=== PATIENT | male | born 1955 | race African-American/Black ===

== ENCOUNTER 2023-10-19 09:28 | Observation (INO) | payer OTHER ==
[2023-10-19] MEDS ORDERED: NA CHLORIDE 0.9% 1,000 ML ONE (09:58)
[2023-10-19 10:24] LABS: PT Prothrombin Time 18.6 SECONDS (9.5-12.5); Protime INR 1.72
[2023-10-19 10:30] LABS: Absolute Eosinophils 0.1 K/uL (0-0.5); Absolute Lymphocytes (CBC) 0.7 K/uL (0.7-4.9); Absolute Monocytes 0.5 K/uL (0.1-1.3); Absolute Neutrophil 7.6 K/uL (1.8-8.0); Basophils % 0.5 % (0-1.3); Eosinophils % 0.8 % (0-4.4); Hematocrit 22.5 % (39.6-49.0); Hemoglobin 7.1 g/dL (13.6-17.9); Lymphocytes % 7.7 % (15.3-44.8); MCH 28.1 pg (27.0-35.0); MCHC 31.7 g/dL (32.0-36.0); MCV 88.7 fL (80-100); MPV 9.9 fL (7.6-11.3); Monocytes % 5.7 % (3.3-12.3); Neutrophils % 85.3 % (41.7-73.7); Nucleated Red Blood Cells % 0.3 % (0-0); Platelets 93 thou/uL (152-406); RBC Red Blood Cell Count 2.54 M/uL (4.33-5.43)
--- NOTE | 2023-10-19 10:31 | RAD REPORT ---
EXAM DESCRIPTION: CT - Head C Spine Cap Lauren Con - 10/19/2023 10:00 am CLINICAL HISTORY: Head and neck injury with chest and abdominal pain status post fall TECHNIQUE: Computed axial tomography of head, neck, chest, abdomen and pelvis obtained. IV and oral contrast not requested. Coronal and sagittal reconstruction performed. All CT scans are performed using dose optimization technique as appropriate and may include automated exposure control or mA/KV adjustment according to patient size. COMPARISON: None FINDINGS: An intracranial bleed is not seen. The ventricles are normal in caliber. An extra-axial fluid collection is not noted. Small old right occipital lobe infarction Fluid within the sinuses/mastoids is not seen. A cervical fracture is not seen. A 1.3 centimeter sclerotic lesion T3 vertebral body Slight anterior subluxation C3 on C4 and C4 on C5. Mild splaying of the spinous processes C5 and C6 . spondylosis distal cervical spine Small lipoma right posterior neck musculature The evaluation of mediastinum, christine, vessels, solid organs and bowel are limited secondary to the lac k of contrast administration. A mediastinal hematoma is not noted. Moderate to large left and small to moderate right pleural effus ions A lung contusion is not present. Multiple calcified and noncalcified lung granulomas. Opacity le ft lung probably atelectasis. Calcified mediastinal lymph nodes The liver,spleen, pancreas, adrenals,kidneys and bladder do not demonstrate an acute traumatic injury 2.3 centimeter hepatic cyst. Small kidneys. Small renal cysts. Vascular calcifications. Small to moderate amount of ascites. Spondylosis lumbar spine IMPRESSION: No acute intracranial abnormality is seen. A cervical fracture is not visualized. Slight anterior subluxation C3 on C4 and C4 on C5. Mild splayi ng of the spinous processes C5 and C6. I suspect all of this is chronic. If the patient continues to have symptoms to suggest intracranial/spinal cord/ligamentous pathology then MRI would be recommended No acute traumatic abnormality involving the chest, abdomen or pelvis Multiple calcified and and non calcified lung nodules probably benign. Follow-up unenhanced CT chest in 1 year recommended for re-evaluation Moderate to large left pleural effusion T3 sclerosis nonspecific. This could be benign or blastic metastasis
[2023-10-19 10:44] LABS: ALT/SGPT 13 U/L (16-61); AST/SGOT 19 U/L (15-37); Albumin 2.3 g/dL (3.4-5.0); Albumin/Globulin Ratio 0.7 (1.1-1.8); Alkaline Phosphatase 95 U/L (45-117); Anion Gap 11.1 mEq/L (5.0-15.0); BUN Blood Urea Nitrogen 10 mg/dL (7-18); Bicarbonate 26 mEq/L (21-32); Bilirubin Total 0.3 mg/dL (0.2-1.0); Globulin 3.4 g/dL (2.3-3.5); Glomerular Filtration Rate 16 ml/min (=/>90); Glucose Level 117 mg/dL (74-106); Lipase 36 U/L (13-75); Magnesium 1.9 mg/dL (1.6-2.4); NT PRO-BNP 5275 pg/mL (<125); Potassium 3.1 mEq/L (3.5-5.1); Protein, Total 5.7 g/dL (6.4-8.2); Sodium Level 141 mEq/L (136-145); Troponin High Sensitivity 23.6 pg/mL (<58.9)
[2023-10-19 10:45] LABS: Bilirubin Direct < 0.1 mg/dL (0-0.2); Bilirubin Indirect, Calculated ND mg/dL (0.2-0.8)
--- NOTE | 2023-10-19 11:00 | ER ---
Nurse's Notes [facility] Name: David German Age: 68 yrs Sex: Male : 1955 Arrival Date: 10/19/2023 Time: 09:28 Bed 6 Private MD: Diagnosis: Dizziness and giddiness;Anemia in chronic kidney disease;Syncope Near;Fall on same level, unspecified;Dependence on renal dialysis;Hypertensive heart and chronic kidney disease without heart failure, with stage 5 chronic kidney disease, or end stage renal disease Presentation: 10/18 09:39 Chief complaint: EMS states: toned out to [facility] for fall out of wheelchair due to ld1 dizziness. [facility] reports removing minimal fluid due to patient being dry. Post treatment pt became dizzy and fell out of wheelchair in parking lot, denies hitting head, negative LOC. Not on blood thinners. Coronavirus screen: At this time, the client does not indicate any symptoms associated with coronavirus-19. Ebola Screen: No symptoms or risks identified at this time. Initial Sepsis Screen: Does the patient meet any 2 criteria? No. Patient's initial sepsis screen is negative. Does the patient have a suspected source of infection? No. Patient's initial sepsis screen is negative. Risk Assessment: Do you want to hurt yourself or someone else? Patient reports no desire to harm self or others. Onset of symptoms was October 19, 2023. 09:39 Method Of Arrival: EMS: [facility] ld1 09:39 Acuity: RODDY 3 ld1 Triage Assessment: 09:50 General: Appears in no apparent distress. comfortable, Behavior is calm, cooperative, ld1 appropriate for age. Pain: Denies pain. EENT: No signs and/or symptoms were reported regarding the EENT system. Neuro: Level of Consciousness is awake, alert, obeys commands, Oriented to person, place, time, situation, Reports dizziness. Cardiovascular: Capillary refill < 3 seconds Patient's skin is warm and dry. Rhythm is sinus rhythm. Respiratory: Airway is patent Respiratory effort is even, unlabored. GI: Abdomen is flat, non-distended. : No signs and/or symptoms were reported regarding the genitourinary system. Derm: No signs and/or symptoms reported regarding the dermatologic system. Musculoskeletal: No signs and/or symptoms reported regarding the musculoskeletal system. Historical: - Allergies: 09:50 No Known Allergies; ld1 - Home Meds: 09:45 midodrine 10 mg oral tablet 1 tab 3 times per day [Active]; furosemide 40 mg Oral ld1 tablet 1 tab 2 times per day [Active]; Lantus U-100 Insulin Sub-Q [Active]; - PMHx: 09:45 Diabetes mellitus; Chronic kidney disease; Dialysis; ld1 - Immunization history:: Adult Immunizations up to date. - Infectious Disease History:: Denies. - Social history:: Smoking status: Patient denies any tobacco usage or history of. - Family history:: not pertinent. Screenin:52 [facility] ED Fall Risk Assessment (Adult) History of falling in the last 3 months, ld1 including since admission Yes- single mechanical fall (1 pt). Abuse screen: Denies threats or abuse. Denies injuries from another. Nutritional screening: No deficits noted. Nutritional screening: No deficits noted. Tuberculosis screening: No symptoms or risk factors identified. Assessment: :52 Reassessment: See triage assessmnet. ld1 Vital Signs: 09:39 BP 98 / 64; Pulse 76; Resp 18; Temp 97.6(TE); Pulse Ox 100% on R/A; Weight 66 kg; ld1 Height 5 ft. 8 in. ; Pain 0/10; 09:39 Body Mass Index 22.12 (66.00 kg, 172.72 cm) ld1 09:39 Pain Scale: Adult ld1 ED Course: 09:38 Patient arrived in ED. ld1 09:44 Henrik Ramirez MD is Attending Physician. [facility] 09:45 Triage completed. ld1 09:50 Arm band placed on right wrist. ld1 09:52 Patient has correct armband on for positive identification. Placed in gown. Bed in low ld1 position. Call light in reach. Side rails up X2. trim and burr operator on. Pulse ox on. NIBP on. Door closed. Noise minimized. Warm blanket given. 09:52 No provider procedures requiring assistance completed. ld1 09:53 Di Hernandez, ÓSCAR is Primary Nurse. ld1 10:02 CT Traumagram (Head C Spine CAP wo con) In Process Unspecified. EDMS 10:21 XRAY Chest (1 view) In Process Unspecified. EDMS 10:22 Accessed Port-a-Cath. using accessed w/ # 20 Porter needle, ,sterile technique, per 1 hospital protocol. Good blood return. Flushes easily. 10:54 Marion Isidro MD is Hospitalizing Provider. [facility] 11:02 Type And Screen Sent. ld1 11:05 Bb Add On Sent. ko1 12:42 Patient admitted, IV remains in place. ld1 Administered Medications: 10:20 Drug: NS 0.9% IV 1000 ml IV at 125 ml/hr continuous Route: IV; Rate: 125 ml/hr; Site: ld1 Port-a-cath; 10:20 Drug: NS 0.9% IV 250 ml IV at bolus once Route: IV; Rate: bolus; Site: Port-a-cath; ld1 Medication: 09:52 VIS not applicable for this client. ld1 Outcome: 11:00 Decision to Hospitalize by Provider. [facility] 12:41 Admitted to Med/surg accompanied by tech, via wheelchair, ld1 12:41 Condition: stable 12:41 Instructed on the need for admit, 12:43 Patient left the ED. ld1 Signatures: Dispatcher [employer] EDHenrik Lovell MD MD cha Sims, Lauren, RN RN ld1 Lashonda Canas, RN RN ko1 Corrections: (The following items were deleted from the chart) 11:35 11:02 ABO/RH typing drawn and sent. 1 EDMS
--- NOTE | 2023-10-19 11:00 | EDPHYS ---
Physician Documentation [facility] Name: David German Age: 68 yrs Sex: Male : 1955 Arrival Date: 10/19/2023 Time: 09:28 Bed 6 Private MD: ED Physician Henrik Ramirez HPI: 10/18 10:40 This 68 yrs old Male presents to ER via EMS with complaints of Fall Injury, suleiman Dizziness, General Weakness. 10:40 Details of fall: The patient fell from an upright position, while walking. Onset: The suleiman symptoms/episode began/occurred just prior to arrival. Associated injuries: The patient sustained no obvious injury. Severity of symptoms: At their worst the symptoms were mild, in the emergency department the symptoms are unchanged. The patient has experienced similar episodes in the past, several times. Historical: - Allergies: 09:50 No Known Allergies; ld1 - Home Meds: 09:45 midodrine 10 mg oral tablet 1 tab 3 times per day [Active]; furosemide 40 mg Oral ld1 tablet 1 tab 2 times per day [Active]; Lantus U-100 Insulin Sub-Q [Active]; - PMHx: 09:45 Diabetes mellitus; Chronic kidney disease; Dialysis; ld1 - Immunization history:: Adult Immunizations up to date. - Infectious Disease History:: Denies. - Social history:: Smoking status: Patient denies any tobacco usage or history of. - Family history:: not pertinent. ROS: 10:35 Constitutional: Negative for fever, chills, and weight loss, Eyes: Negative for injury, suleiman pain, redness, and discharge, ENT: Negative for injury, pain, and discharge, Neck: Negative for injury, pain, and swelling, Cardiovascular: Negative for chest pain, palpitations, and edema, Respiratory: Negative for shortness of breath, cough, wheezing, and pleuritic chest pain, Abdomen/GI: Negative for abdominal pain, nausea, vomiting, diarrhea, and constipation, Back: Negative for injury and pain, : Negative for injury, bleeding, discharge, and swelling, MS/Extremity: Negative for injury and deformity, Skin: Negative for injury, rash, and discoloration, Psych: Negative for depression, anxiety, suicide ideation, homicidal ideation, and hallucinations, Allergy/Immunology: Negative for hives, rash, and allergies, Endocrine: Negative for neck swelling, polydipsia, polyuria, polyphagia, and marked weight changes, Hematologic/Lymphatic: Negative for swollen nodes, abnormal bleeding, and unusual bruising, 10:35 Neuro: Positive for weakness, Exam: 10:35 Constitutional: This is a well developed, well nourished patient who is awake, alert, suleiman and in no acute distress. Head/Face: Normocephalic, atraumatic. Eyes: Pupils equal round and reactive to light, extra-ocular motions intact. Lids and lashes normal. Conjunctiva and sclera are non-icteric and not injected. Cornea within normal limits. Periorbital areas with no swelling, redness, or edema. ENT: Nares patent. No nasal discharge, no septal abnormalities noted. Tympanic membranes are normal and external auditory canals are clear. Oropharynx with no redness, swelling, or masses, exudates, or evidence of obstruction, uvula midline. Mucous membranes moist. Neck: Trachea midline, no thyromegaly or masses palpated, and no cervical lymphadenopathy. Supple, full range of motion without nuchal rigidity, or vertebral point tenderness. No Meningismus. Chest/axilla: Normal chest wall appearance and motion. Nontender with no deformity. No lesions are appreciated. Cardiovascular: Regular rate and rhythm with a normal S1 and S2. No gallops, murmurs, or rubs. Normal PMI, no JVD. No pulse deficits. Respiratory: Lungs have equal breath sounds bilaterally, clear to auscultation and percussion. No rales, rhonchi or wheezes noted. No increased work of breathing, no retractions or nasal flaring. Abdomen/GI: Soft, non-tender, with normal bowel sounds. No distension or tympany. No guarding or rebound. No evidence of tenderness throughout. Back: No spinal tenderness. No costovertebral tenderness. Full range of motion. Skin: Warm, dry with normal turgor. Normal color with no rashes, no lesions, and no evidence of cellulitis. MS/ Extremity: Pulses equal, no cyanosis. Neurovascular intact. Full, normal range of motion. Neuro: Awake and alert, GCS 15, oriented to person, place, time, and situation. Cranial nerves II-XII grossly intact. Motor strength 5/5 in all extremities. Sensory grossly intact. Cerebellar exam normal. Normal gait. Psych: Awake, alert, with orientation to person, place and time. Behavior, mood, and affect are within normal limits. 10:35 ECG was reviewed by the Attending Physician. Vital Signs: 09:39 BP 98 / 64; Pulse 76; Resp 18; Temp 97.6(TE); Pulse Ox 100% on R/A; Weight 66 kg; ld1 Height 5 ft. 8 in. ; Pain 0/10; 09:39 Body Mass Index 22.12 (66.00 kg, 172.72 cm) ld1 09:39 Pain Scale: Adult ld1 MDM: 09:44 Patient medically screened. suleiman 10:42 Differential Diagnosis altered mental status, sepsis, flu. Differential diagnosis: suleiman abrasion, closed head injury, contusion, fracture, laceration, multiple trauma, sprain, strain. Data reviewed: vital signs, nurses notes, EMS record, lab test result(s), EKG, radiologic studies, CT scan, plain films. Consideration of Admission/Observation Escalation of care including admission/observation considered. I considered the following discharge prescriptions or medication management in the emergency department Medications were administered in the Emergency Department. See MAR. Independent interpretation of the following test(s) in the Emergency Department EKG: See my EKG interpretation above. Test considered but Not performed: MRI: NO MRI BRAIN. Care significantly affected by the following chronic conditions: Diabetes, Chronic Kidney Disease, DIALYSIS T,TH, SAT. 10/18 09:48 Order name: Basic Metabolic Panel; Complete Time: 10:47 10/18 09:48 Order name: CBC with Diff 10/18 09:48 Order name: LFT's; Complete Time: 10:47 10/18 09:48 Order name: Magnesium; Complete Time: 10:47 10/18 09:48 Order name: NT PRO-BNP; Complete Time: 10:47 10/18 09:48 Order name: PT-INR; Complete Time: 10:27 10/18 09:48 Order name: Troponin HS; Complete Time: 10:47 10/18 09:48 Order name: Lipase; Complete Time: 10:47 10/18 09:48 Order name: Urinalysis w/ reflexes 10/18 10:53 Order name: Bb Add On bd 10/18 10:54 Order name: Type And Screen bd 10/18 11:37 Order name: Packed RBC Leukored EDMS 10/18 12:02 Order name: ABO/RH no charge [facility] 10/18 12:08 Order name: CBC Smear Scan [facility] 10/18 09:48 Order name: XRAY Chest (1 view) [facility] 10/18 09:48 Order name: CT Traumagram (Head C Spine CAP wo con); Complete Time: 10:47 [facility] 10/18 09:48 Order name: EKG; Complete Time: 09:49 [facility] 10/18 11:37 Order name: CONS Physician Consult [facility] 10/18 09:48 Order name: Cardiac monitoring; Complete Time: 09:53 [facility] 10/18 09:48 Order name: EKG - Nurse/Tech; Complete Time: 09:53 [facility] 10/18 09:48 Order name: IV Saline Lock; Complete Time: 10:22 [facility] 10/18 09:48 Order name: Labs collected and sent; Complete Time: 10:22 [facility] 10/18 09:48 Order name: O2 Per Protocol; Complete Time: 09:53 [facility] 10/18 09:48 Order name: O2 Sat Monitoring; Complete Time: 09:53 [facility] EC:35 Rate is 77 beats/min. Rhythm is regular. QRS [place] is Normal. [place] interval is normal. QRS suleiman interval is normal. QT interval is normal. No Q waves. T waves are Normal. No ST changes noted. Clinical impression: NSR w/ Non-specific ST/T Changes and No evidence of ischemia. Interpreted by me. Reviewed by me. Administered Medications: 10:20 Drug: NS 0.9% IV 1000 ml IV at 125 ml/hr continuous Route: IV; Rate: 125 ml/hr; Site: ld1 Port-a-cath; 10:20 Drug: NS 0.9% IV 250 ml IV at bolus once Route: IV; Rate: bolus; Site: Port-a-cath; ld1 Disposition Summary: 10/19/23 11:00 Hospitalization Ordered Notes: Hospitalization Status: Observation suleiman Provider: Marion Isidro cha Location: Telemetry/MedSurg (observation) suleiman Condition: Fair suleiman Problem: new suleiman Symptoms: have improved suleiman Bed/Room Type: Standard suleiman Room Assignment: 420(10/19/23 11:57) bd Diagnosis - Dizziness and giddiness suleiman - Anemia in chronic kidney disease suleiman - Syncope Near suleiman - Fall on same level, unspecified suleiman - Dependence on renal dialysis suleiman - Hypertensive heart and chronic kidney disease without heart failure, with stage 5 suleiman chronic kidney disease, or end stage renal disease Discharge Instructions: - Discharge Summary Sheet suleiman - Fall Prevention in the Home, Adult suleiman - Hypotension suleiman - Near-Syncope suleiman - Orthostatic Hypotension suleiman - Dialysis suleiman - Fall Prevention in the Home, Adult, Ccaf-ew-Dvau suleiman - Hypotension, Neib-pu-Gkgm suleiman - Hemodialysis, Txan-uz-Nieu suleiman Forms: - Medication Reconciliation Form suleiman - SBAR form suleiman - Leadership Thank You Letter suleiman Signatures: Dispatcher [employer] EDManuela Thorpe Corey, MD MD cha Sims, Lauren, RN RN ld1 Corrections: (The following items were deleted from the chart) 09:49 09:49 BASIC METABOLIC PANEL+C.LAB.BRZ ordered. EDMS EDMS 09:49 09:49 CBC+H.LAB.BRZ ordered. EDMS EDMS 09:49 09:49 HEPATIC FUNCTION+C.LAB.BRZ ordered. EDMS EDMS 09:49 09:49 MAGNESIUM+C.LAB.BRZ ordered. EDMS EDMS 09:49 09:49 PROBNP+C.LAB.BRZ ordered. EDMS EDMS 09:49 09:49 PROTIME (+INR)+COAG.LAB.BRZ ordered. EDMS EDMS 09:49 09:49 Troponin High Sensitivity+C.LAB.BRZ ordered. EDMS EDMS 09:49 09:49 LIPASE+C.LAB.BRZ ordered. EDMS EDMS 09:49 09:49 Urinalysis+U.LAB.BRZ ordered. EDMS EDMS 11:35 10:50 PACKED RBC LEUKORED+BB.LAB.BRZ ordered. EDMS EDMS 11:35 10:52 ABO/RH typing ordered. EDMS EDMS 11:35 10:52 Antibody Screen ordered. EDMS EDMS 11:57 11:00 suleiman bd
--- NOTE | 2023-10-19 11:24 | RAD REPORT ---
EXAM DESCRIPTION: Rachael Single View10/19/2023 10:19 am CLINICAL HISTORY: Cough COMPARISON: none FINDINGS: Moderate to large left and small to moderate right pleural effusions with bilateral atelec tasis. Calcified lung granulomas bilaterally. Several noncalcified lung nodules. Heart is mildly enlarged. Postsurgical changes involve the chest. Vascular stents and vascular catheter in place
[2023-10-19] MEDS ORDERED: NA CHLORIDE 0.9% 250 ML ONE (11:31)
--- NOTE | 2023-10-19 11:39 | P.HP ---
Certification for Inpatient Patient admitted to: Observation <Ame Shook - Last Filed: 10/19/23 13:36> Patient History Date of Service: 10/19/23 Reason for admission: Syncopal epsisode History of Present Illness: 68 year old AA male patient with past medical history pancreatic cancer, (recieved x 1 dose chemo), ESRD HD w Dr Chang, TTS, failed renal transplant, hypertension, IDDM, PAD, L)BKA, toe and finger amputations, he was in WC after HD and had a fall, he denies hitting his head, denies pain. Denies LOC. He reports generalized weakness, fall, is at bedside is primary historian reports recent hypotension, generalized weakness, inability to stand, reports recently treated stool infecton, Emoyro had diarrhea treated with IV antibiotics. He denies LOC, Baseline amb w WC, LBKA w prosthesis, partial finger and toe ampuations, reported moderate weakness, had a fall today after HD today. Plan to admit for syncopal episode, ESRD HD, Anemia, fall, generalized weakness. - Past Medical/Surgical History Diabetic: Yes -: ESRD HD -: Failled Renal transplant -: Metastatic pancreatic cancer (finished 1 dose chemo) -: hypertension -: IDDM -: PAD -: L)BKA -: prior toe, finger ampuations -: Failed Renal Transplant - Social History Smoking Status: Never smoker Alcohol use: No Caffeine use: No Place of Residence: Home <Ame Sohok - Last Filed: 10/19/23 13:36> Date of Service: 10/19/23 <Marion Isidro - Last Filed: 10/23/23 01:46> Allergies No Known Allergies Allergy (Unverified 10/19/23 11:30) Home Medications: Apixaban [Eliquis] 1 tab PO BID 10/19/23 Aspirin [Aspirin EC] 1 tab PO DAILY 10/19/23 Atorvastatin Calcium [Lipitor] 1 tab PO BEDTIME 10/19/23 Cyanocobalamin (Vitamin B-12) [Vitamin B-12] 1 tab PO DAILY 10/19/23 Insulin Glargine,Hum.rec.anlog [Lantus] 12 units SQ BEDTIME 10/19/23 Insulin Lispro 1 unit SQ TID 10/19/23 Metoclopramide HCl [Reglan] 1 tab PO BID 10/19/23 Midodrine HCl 10 mg PO SEECOM 10/19/23 Pantoprazole Sodium [Protonix] 1 tab PO DAILY 10/19/23 Tamsulosin [Flomax*] 1 cap PO DAILY 10/19/23 Review of Systems per HPI <BouchraAme - Last Filed: 10/19/23 13:36> Physical Examination - Physical Exam General: Alert, In no apparent distress, Oriented x3, Other HEENT: Atraumatic, Normocephalic Neck: Supple, 2+ carotid pulse no bruit Respiratory: Normal air movement, Diminished Cardiovascular: Normal pulses, Regular rate/rhythm Capillary refill: <2 Seconds Gastrointestinal: Normal bowel sounds, Soft and benign Musculoskeletal: No clubbing, No swelling, Other (L)BKA w prosthesis, finger, toe ampuatations) Integumentary: No rashes, No breakdown, Other (right femoral HD cath, L) arm fistula) Neurological: Normal speech, Normal strength at 5/5 x4 extr, Other (generalized weakness) - Studies Laboratory Data (last 24 hrs) 10/19/23 10/19/23 10/19/23 10:14 10:14 10:14 WBC 9.00 Hgb 7.1 L Hct 22.5 L Plt Count 93 L PT 18.6 H INR 1.72 Sodium 141 Potassium 3.1 L BUN 10 Creatinine 3.84 H Glucose 117 H Magnesium 1.9 Total Bilirubin 0.3 AST 19 ALT 13 L Alkaline Phosphatase 95 Lipase 36 <BouchraAme - Last Filed: 10/19/23 13:36> Assessment and Plan - Plan Assessment plan Mechanical fall Suspected syncopal episode likely from hypovolemia end-stage renal disease post hemodialysis Hypotension PAD On chronic anticoagulation Eliquis Left below the knee amputation Echo, as needed midodrine PT eval for transfer training Fall precaution EKG Rate is 77 beats/min. Rhythm is regular. QRS [place] is Normal. [place] interval is normal. QRS interval is normal. QT interval is normal. No Q waves. T waves are Normal. No ST changes noted. Clinical impression: NSR w/ Non-specific ST/T Changes and No evidence of ischemia. Troponin normal at 23.6 Elevated BNP 5275 Metastatic pancreatic cancer On chemotherapy-previously received 1 dose On chronic anticoag Follow-up with oncology outpatient, End-stage renal disease on hemodialysis Failed renal transplant Monday, Nephrology consult for hemodialysis daily weight Anemia of chronic disease Trend H&H transfuse 1 unit 7.1 22.5 Thrombocytopenia Platelets 93, heparin on hold, Eliquis on hold Insulin-dependent Accu-Chek, sliding scale Full code DVT Eliquis hold due to anemia Diet renal Disposition Home with spouse, ambulates with wheelchair prior to admission, possibly at home with home health for PT Discharge Plan: Home - Advance Directives Does patient have a Living Will: No Does patient have a Durable POA for Healthcare: No - Code Status/Comfort Care Code Status: Full Code Critical Care: No Time Spent Managing Pts Care (In Minutes): 55 <Ame Shook - Last Filed: 10/19/23 13:36> Date of Service: 10/19/23 Patient was seen and examined. Events of the last 24 hours have been noted. Spoke with with TOMA regarding patient's clinical picture after evaluating and examining the patient independently. I performed a substantial part of the MDM during this patient's care today. I personally made or approved the documented management plan and acknowledge its risk of complications. I agree with the findings and documentation provided in the TOMA's notes. <Marion Isidro - Last Filed: 10/23/23 01:46>
[2023-10-19 12:08] LABS: Anisocytosis 1+; Blood Morphology Comment NOTED (NOT SEEN); Platelet Estimate DECR; White Blood Cell Scan OK (OK)
[2023-10-19] MEDS ORDERED: ACETAMINOPHEN 500 MG TAB PO PRN (12:53)
[2023-10-19 13:08] VITALS: BMI 22.1
[2023-10-19] MEDS: INSULIN REGULAR (HUMAN) 100 UNIT/ML SQ SCH (16:27)
[2023-10-19] MEDS ORDERED: HEPARIN 5000 UNIT/ML 1 ML VIAL SQ SCH (17:00)
--- NOTE | 2023-10-19 18:45 | P.CNS ---
Date of Consult: 10/19/23 Reason for Consult: ESRD Requesting Physician: Marion Isidro Chief Complaint: Syncopal epsisode History of Present Illness: 68 year old AA male patient with past medical history pancreatic cancer, (recieved x 1 dose chemo), ESRD HD w Dr Chang, TTS, failed renal transplant, hypertension, IDDM, PAD, L)BKA, toe and finger amputations, he was in WC after HD and had a fall, he denies hitting his head, denies pain. Denies LOC. He reports generalized weakness, fall, is at bedside is primary historian reports recent hypotension, generalized weakness, inability to stand, reports recently treated stool infecton, [place] had diarrhea treated with IV antibiotics. He denies LOC, Baseline amb w WC, LBKA w prosthesis, partial finger and toe ampuations, reported moderate weakness, had a fall today after HD today. Plan to admit for syncopal episode, ESRD HD, Anemia, fall, generalized weakness. [id number] 10:40 This 68 yrs old Male presents to ER via EMS with complaints of Fall Injury, suleiman Dizziness, General Weakness. 10:40 Details of fall: The patient fell from an upright position, while walking. Onset: The suleiman symptoms/episode began/occurred just prior to arrival. Associated injuries: The patient sustained no obvious injury. Severity of symptoms: At their worst the symptoms were mild, in the emergency department the symptoms are unchanged. The patient has experienced similar episodes in the past, several times. Allergies No Known Allergies Allergy (Unverified 10/19/23 11:30) Home medications list reviewed: Yes Home Medications: Apixaban [Eliquis] 1 tab PO BID 10/19/23 Aspirin [Aspirin EC] 1 tab PO DAILY 10/19/23 Atorvastatin Calcium [Lipitor] 1 tab PO BEDTIME 10/19/23 Cyanocobalamin (Vitamin B-12) [Vitamin B-12] 1 tab PO DAILY 10/19/23 Insulin Glargine,Hum.rec.anlog [Lantus] 12 units SQ BEDTIME 10/19/23 Insulin Lispro 1 unit SQ TID 10/19/23 Metoclopramide HCl [Reglan] 1 tab PO BID 10/19/23 Midodrine HCl 10 mg PO SEECOM 10/19/23 Pantoprazole Sodium [Protonix] 1 tab PO DAILY 10/19/23 Tamsulosin [Flomax*] 1 cap PO DAILY 10/19/23 - Past Medical/Surgical History Diabetic: Yes -: ESRD HD -: Fa[facility] Renal transplant -: Metastatic pancreatic cancer (finished 1 dose chemo) -: HTN -: IDDM -: PAD -: Left BKA -: prior toe, finger ampuations -: Failed Renal Transplant - Family History Father Medical History: Lung disease, Cancer Mother Medical History: GI disease - Social History Alcohol use: No CD- Drugs: No Caffeine use: No Place of Residence: Home Review of Systems 10-point ROS is otherwise unremarkable General: Weakness Physical Examination Temp Pulse Resp BP Pulse Ox 97.4 F 80 16 182/70 H 10/19/23 16:00 10/19/23 16:00 10/19/23 16:00 10/19/23 16:00 General: In no apparent distress, Cooperative HEENT: Atraumatic Neck: Supple Respiratory: Normal air movement Cardiovascular: Regular rate/rhythm Gastrointestinal: Soft and benign, Non-distended Musculoskeletal: No clubbing, No contractures Integumentary: No rashes, No cyanosis Neurological: Normal speech Laboratory Data (last 24 hrs) 10/19/23 10/19/23 10/19/23 10:14 10:14 10:14 WBC 9.00 Hgb 7.1 L Hct 22.5 L Plt Count 93 L PT 18.6 H INR 1.72 Sodium 141 Potassium 3.1 L BUN 10 Creatinine 3.84 H Glucose 117 H Magnesium 1.9 Total Bilirubin 0.3 AST 19 ALT 13 L Alkaline Phosphatase 95 Lipase 36 Imagings Data: [id number] [facility] CLINICAL HISTORY: Cough COMPARISON: none FINDINGS: Moderate to large left and small to moderate right pleural effusions with bilateral atelectasis. Calcified lung granulomas bilaterally. Several noncalcified lung nodules. Heart is mildly enlarged. Postsurgical changes involve the chest. Vascular stents and vascular catheter in place [id number] EXAM DESCRIPTION: CT - Head C Spine Cap Wo Con - 10/19/2023 10:00 am CLINICAL HISTORY: Head and neck injury with chest and abdominal pain status post fall TECHNIQUE: Computed axial tomography of head, neck, chest, abdomen and pelvis obtained. IV and oral contrast not requested. Coronal and sagittal reconstruction performed. All CT scans are performed using dose optimization technique as appropriate and may include automated exposure control or mA/KV adjustment according to patient size. COMPARISON: None FINDINGS: An intracranial bleed is not seen. The ventricles are normal in caliber. An extra-axial fluid collection is not noted. Small old right occipital lobe infarction Fluid within the sinuses/mastoids is not seen. A cervical fracture is not seen. A 1.3 centimeter sclerotic lesion T3 vertebral body Slight anterior subluxation C3 on C4 and C4 on C5. Mild splaying of the spinous processes C5 and C6 .spondylosis distal cervical spine Small lipoma right posterior neck musculature The evaluation of mediastinum, christine, vessels, solid organs and bowel are limited secondary to the lack of contrast administration. A mediastinal hematoma is not noted. Moderate to large left and small to moderate right pleural effusions A lung contusion is not present. Multiple calcified and noncalcified lung granulomas. Opacity left lung probably atelectasis. Calcified mediastinal lymph nodes The liver,spleen, pancreas, adrenals,kidneys and bladder do not demonstrate an acute traumatic injury 2.3 centimeter hepatic cyst. Small kidneys. Small renal cysts. Vascular calcifications. Small to moderate amount of ascites. Spondylosis lumbar spine IMPRESSION: No acute intracranial abnormality is seen. A cervical fracture is not visualized. Slight anterior subluxation C3 on C4 and C4 on C5. Mild splaying of the spinous processes C5 and C6. I suspect all of this is chronic. If the patient continues to have symptoms to suggest intracranial/spinal cord/ligamentous pathology then MRI would be recommended No acute traumatic abnormality involving the chest, abdomen or pelvis Multiple calcified and and non calcified lung nodules probably benign. Follow-up unenhanced CT chest in 1 year recommended for re-evaluation Moderate to large left pleural effusion T3 sclerosis nonspecific. This could be benign or blastic metastasis Conclusions/Impression: ESRD on HD TTS -HD TIW Hypokalemia -Replete prn Chronic Hypotension -Midodrine prn Diastolic CHF, chronic -Daily weight -Low sodium diet DM II with CKD -RISS Hypoalbuminemia Moderate malnutrition in the setting of malignancy -Start Nepro Anemia in CKD -Retacrit X1 BPH with LUTS -Tamsulosin prn CKD MBD -Start Ergo -Start Calcitriol Thank you kindly for the consultation
[2023-10-19] MEDS: EPOETIN ALFA-EPBX 10,000 UNIT/ML VIAL SQ ONE (19:00)
--- NOTE | 2023-10-19 21:36 | RAD REPORT ---
EXAM DESCRIPTION: USCarotid Artery Bilateral10/19/2023 8:34 pm CLINICAL HISTORY: syncope COMPARISON: None FINDINGS: The velocity of the right internal carotid artery equals 106 cm/sec. The right ICA/CCA rat io normal The velocity of the left internal carotid artery equals 98 cm/sec. The left ICA/CCA ratio normal [id number] calcified plaque right carotid bulb. Mild calcified plaque right common and right in ternal carotid arteries. Mild calcified plaque left common and left internal carotid arteries. The vertebral arteries demonstrate antegrade flow IMPRESSION: Mild to moderate plaque within the carotid arteries without evidence of a hemodynamicall y significant stenosis NASCET criteria used. Mild 0-49% stenosis Moderate 50-69% stenosis Severe 70-99% stenosis
[2023-10-19] MEDS: NA CHLORIDE 0.9% 1,000 ML ONE (23:20)
[2023-10-20 05:49] LABS: Absolute Eosinophils 0.1 K/uL (0-0.5); Absolute Lymphocytes (CBC) 0.9 K/uL (0.7-4.9); Absolute Monocytes 0.6 K/uL (0.1-1.3); Absolute Neutrophil 9.2 K/uL (1.8-8.0); Basophils % 0.3 % (0-1.3); Eosinophils % 0.7 % (0-4.4); Hematocrit 27.7 % (39.6-49.0); Hemoglobin 9.2 g/dL (13.6-17.9); Lymphocytes % 8.5 % (15.3-44.8); MCH 29.7 pg (27.0-35.0); MCHC 33.1 g/dL (32.0-36.0); MCV 89.7 fL (80-100); MPV 10.1 fL (7.6-11.3); Monocytes % 5.4 % (3.3-12.3); Neutrophils % 85.1 % (41.7-73.7); Nucleated RBC Absolute Count 0.1 (0-0); Nucleated Red Blood Cells % 0.6 % (0-0); Platelets 94 thou/uL (152-406); RBC Red Blood Cell Count 3.09 M/uL (4.33-5.43); Red Cell Distribution Width 17.7 % (12.1-15.2)
[2023-10-20 06:09] LABS: Albumin 2.1 g/dL (3.4-5.0); Albumin/Globulin Ratio 0.6 (1.1-1.8); Anion Gap 12.4 mEq/L (5.0-15.0); Bilirubin Total 0.5 mg/dL (0.2-1.0); Globulin 3.5 g/dL (2.3-3.5); Magnesium 1.8 mg/dL (1.6-2.4); Potassium 3.4 mEq/L (3.5-5.1); Protein, Total 5.6 g/dL (6.4-8.2)
[2023-10-20] MEDS: DOCUSATE NA 100 MG CAP PO SCH (08:36)
[2023-10-20] MEDS: MULTIVITAMINS,THERAPEUT 1 TAB PO SCH (08:36)
[2023-10-20] MEDS: MAGNESIUM SULFATE 1 gm IVPB 1 GM/100 ML BAG IV ONE (08:37)
[2023-10-20] MEDS: CALCITROL 0.25 MCG CAP PO SCH (08:37)
[2023-10-20] MEDS: NEPRO SHAKE 237 ML CAN PO SCH (08:37)
[2023-10-20] MEDS: DRISDOL (VITAMIN D=ERGOCALCIFEROL) 50000 UNIT CAP PO SCH (08:37)
--- NOTE | 2023-10-20 09:18 | P.PN ---
Subjective Date of Service: 10/20/23 Chief Complaint: Syncopal epsisode Admitted for fall, generalized weakness, syncopal episode episode, PT eval ordered, anemia, transfused 2 unit History of end-stage renal disease on hemodialysis Hypotensive as needed midodrine - Physical Exam General: Alert, In no apparent distress, Oriented x3, Other HEENT: Atraumatic, Normocephalic Neck: Supple, 2+ carotid pulse no bruit Respiratory: Normal air movement, Diminished Cardiovascular: Normal pulses, Regular rate/rhythm Capillary refill: <2 Seconds Gastrointestinal: Normal bowel sounds, Soft and benign Musculoskeletal: No clubbing, No swelling, Other (L)BKA w prosthesis, finger, toe ampuatations) Integumentary: No rashes, No breakdown, Other (right femoral HD cath, L) arm fistula) Neurological: Normal speech, Normal strength at 5/5 x4 extr, Other (generalized weakness) <Ame Shook - Last Filed: 10/20/23 16:27> Date of Service: 10/20/23 <Marion Isidro - Last Filed: 10/23/23 01:47> Review of Systems Per HPI <Ame Shook - Last Filed: 10/20/23 16:27> Physical Examination - Vital Signs Temperature: 97.4 F Blood Pressure: 133/62 Pulse: 81 Respirations: 16 Pulse Ox (%): 96 - Studies Laboratory Data (last 24 hrs) 10/19/23 10/19/23 10/19/23 10:14 10:14 10:14 WBC 9.00 Hgb 7.1 L Hct 22.5 L Plt Count 93 L PT 18.6 H INR 1.72 Sodium 141 Potassium 3.1 L BUN 10 Creatinine 3.84 H Glucose 117 H Magnesium 1.9 Total Bilirubin 0.3 AST 19 ALT 13 L Alkaline Phosphatase 95 Lipase 36 <Ame Shook - Last Filed: 10/20/23 16:27> Assessment And Plan - Plan Assessment plan Mechanical fall Suspected syncopal episode likely from hypovolemia end-stage renal disease post hemodialysis Hypotension PAD On chronic anticoagulation Eliquis Left below the knee amputation Echo, as needed midodrine PT eval for transfer training Fall precaution EKG Rate is 77 beats/min. Rhythm is regular. QRS [place] is Normal. VA interval is normal. QRS interval is normal. QT interval is normal. No Q waves. T waves are Normal. No ST changes noted. Clinical impression: NSR w/ Non-specific ST/T Changes and No evidence of ischemia. Troponin normal at 23.6 Elevated BNP 5275 Metastatic pancreatic cancer On chemotherapy-previously received 1 dose On chronic anticoag Follow-up with oncology outpatient, End-stage renal disease on hemodialysis Failed renal transplant Monday, Nephrology consult for hemodialysis daily weight Anemia of chronic disease Trend H&H transfuse 7.1 22.5, hemoglobin improved 9.2 Hypokalemia potassium 3.4 Trend electrolytes replace as needed Thrombocytopenia Platelets 93, heparin on hold, Eliquis on hold Insulin-dependent Accu-Chek, sliding scale Full code DVT Eliquis hold due to anemia Diet renal Disposition Home with spouse, ambulates with wheelchair prior to admission, possibly at home with home health for PT Discharge Plan: Home - Code Status/Comfort Care Code Status: Full Code Critical Care: No Time Spent Managing PTS Care (In Minutes): 35 <Ame Shook - Last Filed: 10/20/23 16:27> Date of Service: 10/20/23 Patient was seen and examined. Events of the last 24 hours have been noted. Spoke with with TOMA regarding patient's clinical picture after evaluating and examining the patient independently. I performed a substantial part of the MDM during this patient's care today. I personally made or approved the documented management plan and acknowledge its risk of complications. I agree with the findings and documentation provided in the TOMA's notes. Patient was not really eating well. Patient's clinical symptoms is very poor. Spoke with family regarding discharge planning. Patient's family is contemplating hospice care. <Marion Isidro - Last Filed: 10/23/23 01:47>
[2023-10-20 09:59] VITALS: O2SAT 97
[2023-10-20] MEDS: POTASSIUM 25 MEQ EFFERV TAB PO ONE (10:12)
--- NOTE | 2023-10-20 10:55 | P.PN ---
(S) Pt did have orthostatic drop in BP with sitting and at home as well with sitting or standing for transfers, he has had pre-syncopal type episodes along with weakness and some intermittent N/V/D, other (O) Vitals reviewed in the EMR General: In no apparent distress HEENT: Atraumatic, not on o2 Neck: Supple Respiratory: Normal air movement, non tachypnec Cardiovascular: Regular rate/rhythm mostly Gastrointestinal: Soft, mild distention, NT Musculoskeletal: Shins non tender, Lt BKA, muscle mass loss Integumentary: No rashes Neurological: Awake, alert, flat affect, non focal Imagings Data: [id number] EXAM DESCRIPTION: [facility] Single View10/19/2023 10:19 am CLINICAL HISTORY: Cough COMPARISON: none FINDINGS: Moderate to large left and small to moderate right pleural effusions with bilateral atelectasis. Calcified lung granulomas bilaterally. Several noncalcified lung nodules. Heart is mildly enlarged. Postsurgical changes involve the chest. Vascular stents and vascular catheter in place Conclusions/Impression: ESRD on HD TTS -S/p partial HD at OP unit yesterday, no need for HD today, stable metab profile Hypokalemia -Will dose PO KCL this AM Pre-syncope, falls (repeated), orthostatic hypotension. Weakness (generalized) -Will give fluid bolus, will place on scheduled midodrine with holding parameters, will revise UF goals/parameters on OP HD Anemia in CKD, chronic illness, including malignancy -Repeat H/H higher, monitor closely
[2023-10-20] MEDS: NA CHLORIDE 0.9% 500 ML IV ONE ×2 (11:13→18:37)
[2023-10-20] MEDS: MIDODRINE HCL 5 MG TABLET PO SCH (11:14)
[2023-10-20] MEDS: ONDANSETRON 4 MG/2 ML VIAL IV PRN (13:37)
[2023-10-20] MEDS: MIDODRINE HCL 5 MG TABLET PO ONE (14:49)
[2023-10-20] MEDS: HYDROMORPHONE HCL 0.5 MG/0.5 ML INJ IV PRN (15:43)
[2023-10-20] MEDS ORDERED: LOPERAMIDE HCL 2 MG CAPSULE PO PRN (18:09)
[2023-10-20] MEDS: levETIRAcetam 500 MG in NA CHLORIDE 0.9% 100 ML IV ONE (18:38)
[2023-10-20] MEDS: METOCLOPRAMIDE 10 MG/2mL INJ IV SCH (18:38)
--- NOTE | 2023-10-20 20:59 | P.PN ---
Date of Service: 10/20/23 Called to see the patient Patient is bradycardic to heart rate of 20s Blood pressure is low on IV fluids Discussed with family Patient clearly decided on DNR As per the family Heart rate dropped to 0 Patient has flat rhythm in telemetry Heart sounds not heard ,no respiratory excursions Pupils fixed at not responding to light Patient is clinically Condolences offered to the family Time of is 8 49 pm
[2023-10-20 21:00] VITALS: BP 59/50; TEMP 87.1
[2023-10-20] MEDS ORDERED: levETIRAcetam 500 MG TAB PO SCH (21:00)
[2023-10-21] MEDS ORDERED: dexAMETHasone 4 MG/ML VIAL IV SCH
[2023-10-21] MEDS ORDERED: ALBUMIN HUMAN 25% 100 ML IV SCH (07:00)
--- NOTE | 2023-10-23 01:50 | P.DS ---
Discharge Date: 10/20/23 Disposition: Reason for Admission: Syncopal epsisode Brief History of Present Illness: 68 year old AA male patient with past medical history pancreatic cancer, (recieved x 1 dose chemo), ESRD HD w Dr Chang, TTS, failed renal transplant, hypertension, IDDM, PAD, L)BKA, toe and finger amputations, he was in WC after HD and had a fall, he denies hitting his head, denies pain. Denies LOC. He reports generalized weakness, fall, is at bedside is primary historian reports recent hypotension, generalized weakness, inability to stand, reports recently treated stool infecton, [place] had diarrhea treated with IV antibiotics. He denies LOC, Baseline amb w WC, LBKA w prosthesis, partial finger and toe ampuations, reported moderate weakness, had a fall today after HD today. Plan to admit for syncopal episode, ESRD HD, Anemia, fall, generalized weakness. Hospital Course: Patient's clinical condition deteriorated during his hospitalization. Patient was having nausea and vomiting. Spoke with patient and the family and patient decided the to be a do not attempt resuscitation. Patient's daughter was on the phone and spoke with her regarding his poor prognosis. They are contemplating hospice care. However, patient at 8:39 p.m. with family at bedside. Home Medications: Apixaban [Eliquis] 1 tab PO BID 10/19/23 Aspirin [Aspirin EC] 1 tab PO DAILY 10/19/23 Atorvastatin Calcium [Lipitor] 1 tab PO BEDTIME 10/19/23 Cyanocobalamin (Vitamin B-12) [Vitamin B-12] 1 tab PO DAILY 10/19/23 Insulin Glargine,Hum.rec.anlog [Lantus] 12 units SQ BEDTIME 10/19/23 Insulin Lispro 1 unit SQ TID 10/19/23 Metoclopramide HCl [Reglan] 1 tab PO BID 10/19/23 Midodrine HCl 10 mg PO SEECOM 10/19/23 Pantoprazole Sodium [Protonix] 1 tab PO DAILY 10/19/23 Tamsulosin [Flomax*] 1 cap PO DAILY 10/19/23 Physician Discharge Instructions: Patient's body was released to the home. Followup: Higinio Post DO [Primary Care Provider] - Time spent managing pt's care (in minutes): 25
--- NOTE | 2023-10-23 07:49 | ECHO ---
HEIGHT: 5 ft 8 in WEIGHT: 145 lb 8 oz DATE OF STUDY: 10/20/[address]: Ame Shook CONFIDENTIAL SECRETARYDarcy 2-DIMENSIONAL: YES M.MODE: YES DOPPLER: YES COLOR FLOW: YES TDS: PORTABLE: YES DEFINITY: BUBBLE STUDY: DIAGNOSIS: SYNCOPE CARDIAC HISTORY: CATHERIZATION: YES SURGERY: YES PROSTHETIC VALVE: NO PACEMAKER: NO MEASUREMENTS (cm) DIASTOLIC (NORMALS) SYSTOLIC (NORMALS) IVSd 1.0 (0.6-1.2) LA Diam 2.8 (1.9-4.0) LVEF 50% LVIDd 3.6 (3.5-5.7) LVIDs 2.7 (2.0-3.5) %FS 24% LVPWd 1.1 (0.6-1.2) Ao Diam 3.0 (2.0-3.7) 2 DIMENSIONAL ASSESSMENT: RIGHT ATRIUM: NORMAL LEFT ATRIUM: NORMAL RIGHT VENTRICLE: NORMAL LEFT VENTRICLE: NORMAL TRICUSPID VALVE: MILD TRICUSPID REGURGITATION MITRAL VALVE: MITRAL ANNULAR CALCIFICATION PULMONIC VALVE: NORMAL AORTIC VALVE: CALCIFIED, NO AORTIC STENOSIS PERICARDIAL EFFUSION: SMALL AORTIC ROOT: NORMAL LEFT VENTRICULAR WALL MOTION: NORMAL DOPPLER/COLOR FLOW: SEE BELOW COMMENTS: 1. POOR STUDY DUE TO POOR WINDOWS 2. OVERALL LEFT VENTRICULAR EJECTION FRACTION APPEARS NORMAL 3. THERE IS A PERICARDIAL EFFUSION THAT IS AT LEAST SMALL, BUT IMAGES ARE POOR TO EVALUATE FURTHER 4. MILD TRICUSPID REGURGITATION 5. PLEURAL EFFUSION IS PRESENT TECHNOLOGIST: JUAN M ARENAS
== END 2023-10-21 00:30 | disposition expired ==
LOC: ER 09:28 → ERHOLD 11:33 → 4TH 12:13
PROVIDERS: ADMIT Hospitalist; ATTEND Hospitalist
PROC: 30233N1 Transfusion of Nonautologous Red Blood Cells into Peripheral Vein, Percutaneous Approach (ICD-10-PCS; principal; 2023-10-19)
DX: I12.0 Hypertensive chronic kidney disease with stage 5 chronic kidney disease or end stage renal disease (principal); N18.6 End stage renal disease; I50.32 Chronic diastolic (congestive) heart failure; I95.9 Hypotension, unspecified; I73.9 Peripheral vascular disease, unspecified; R00.1 Bradycardia, unspecified; R11.2 Nausea with vomiting, unspecified; D69.6 Thrombocytopenia, unspecified; E11.8 Type 2 diabetes mellitus with unspecified complications; E87.6 Hypokalemia; D63.1 Anemia in chronic kidney disease; N40.1 Benign prostatic hyperplasia with lower urinary tract symptoms; J98.11 Atelectasis; R91.8 Other nonspecific abnormal finding of lung field; J84.10 Pulmonary fibrosis, unspecified; I51.7 Cardiomegaly; C25.9 Malignant neoplasm of pancreas, unspecified; J90 Pleural effusion, not elsewhere classified; K76.89 Other specified diseases of liver; D63.8 Anemia in other chronic diseases classified elsewhere; R53.1 Weakness; Z79.01 Long term (current) use of anticoagulants; Z99.2 Dependence on renal dialysis; Z89.512 Acquired absence of left leg below knee; Z79.60 Long term (current) use of unspecified immunomodulators and immunosuppressants; Z79.4 Long term (current) use of insulin; W18.30XA Fall on same level, unspecified, initial encounter; Z79.82 Long term (current) use of aspirin; Z66 Do not resuscitate
CPT/HCPCS: 36430; 93005; 93306; 85025 ×2; 80048; 36415; 86900; 83735 ×2; 86850; 82550; 84100; 85610; 86901; 82947 ×6; 80076; 86920 ×2; 84484; 83690; 80053; 83880 ×2; 70450; 71250; 72125; 71045; 93880; 97112; 97161; 97530 ×2; 96374; 99285; J3475; J1953; J2765; J1170; J2405; P9016; J7050; J7040 ×2; J7030 ×2; G0378; Q5106